=== PATIENT | female | born 1940 | race Caucasian/White ===

== ENCOUNTER → 2016-05-10 | Outpatient (CLI) | payer OTHER ==
[~2016-05-10] MED LIST: ASPIRIN CHILDRE81 MG PO; B12,B-12,B 12500 MC1 PO; BRILINTA90 M1 PO; CLARITIN10 MG PO; CLOPIDOGREL75 MG PO; COMPAZINE10 MG PO; CORDARONE200 MG PO; COUMADIN1 M1 PO; COUMADIN3 M1 PO; CRESTOR40 M1 PO; Carafate1 GM/10 ML PO; Coumadin3 MG PO; DIGOX0.125 MG PO; HYDROCOD-HOMAT1 EACH PO; LISINOPRIL10 M1 PO; LISINOPRIL20 MG PO; LOPRESSOR PO; LOPRESSOR25 MG PO; MACROBID100 M1 PO; MEDROL DOSEPAK4 MG PO; NATURE'S BLEND F1 MG PO; PRAVASTATIN SOD80 MG PO; PROTONIX TR40 M1 PO; SUPHEDRINE30 MG PO; TOPROL XL25 MG PO; WARFARIN2 MG PO; ZEBETA PO; ZEBETA10 MG PO
[2016-05-10 16:17] LABS: INTERNATIONAL NORM RATIO 1.8 (2.0-3.5); PROTHROMBIN TIME 20.1 SECONDS (9.0-12.4)
== END | disposition home or self-care (01) ==
LOC: LAB 14:44
PROVIDERS: Internal Medicine
DX: Z79.01 Long term (current) use of anticoagulants (principal)

== ENCOUNTER → 2016-07-06 | Outpatient (CLI) | payer OTHER ==
[2016-07-06 14:35] LABS: PROTHROMBIN TIME 46.4 SECONDS (9.0-12.4)
== END | disposition home or self-care (01) ==
LOC: LAB 13:42
PROVIDERS: Internal Medicine
DX: Z79.01 Long term (current) use of anticoagulants (principal)

== ENCOUNTER → 2016-07-20 | Outpatient (CLI) | payer OTHER ==
[2016-07-20 16:02] LABS: INTERNATIONAL NORM RATIO 1.8 (2.0-3.5); PROTHROMBIN TIME 19.4 SECONDS (9.0-12.4)
== END | disposition home or self-care (01) ==
LOC: LAB 14:55
PROVIDERS: Internal Medicine
DX: Z79.01 Long term (current) use of anticoagulants (principal)

== ENCOUNTER → 2016-09-22 | Outpatient (CLI) | payer OTHER ==
[2016-09-22 16:08] LABS: INTERNATIONAL NORM RATIO 2.1 (2.0-3.5); PROTHROMBIN TIME 23.8 SECONDS (9.0-12.4)
== END | disposition home or self-care (01) ==
LOC: LAB 12:37
PROVIDERS: Internal Medicine
DX: Z79.01 Long term (current) use of anticoagulants (principal)

== ENCOUNTER → 2016-12-01 | Outpatient (CLI) | payer OTHER ==
[2016-12-01 09:05] LABS: ALBUMIN 3.3 gm/dl (3.1-4.5); BILIRUBIN, DIRECT 0.1 mg/dL (0.0-0.2); CREATININE 1.12 mg/dL (0.55-1.02); PHOSPHOROUS 2.7 mg/dL (2.5-4.9); POTASSIUM 3.9 mmol/L (3.5-5.1); THYROXINE (T4) TOTAL 9.4 ug/dl (4.8-13.9); TOTAL PROTEIN 7.9 gm/dL (6.4-8.2)
[2016-12-01 09:15] LABS: DIGOXIN 0.92 ng/ml (0.8-2.0); THYROID STIM HORMONE (HS) 26.5 uIU/ml (0.358-4.75)
[2016-12-01 09:39] LABS: INTERNATIONAL NORM RATIO 2.3 (2.0-3.5)
== END | disposition home or self-care (01) ==
LOC: MAMMO 08:08 → LAB 08:08 → MAMMO 08:40
PROVIDERS: Internal Medicine
DX: Z12.31 Encounter for screening mammogram for malignant neoplasm of breast (principal); I48.0 Paroxysmal atrial fibrillation; I25.10 Atherosclerotic heart disease of native coronary artery without angina pectoris; I10 Essential (primary) hypertension; Z79.01 Long term (current) use of anticoagulants

== ENCOUNTER → 2016-12-15 | Outpatient (CLI) | payer OTHER ==
[2016-12-15 11:19] LABS: ALBUMIN 3.4 gm/dl (3.1-4.5); CREATININE 1.25 mg/dL (0.55-1.02); PHOSPHOROUS 3.5 mg/dL (2.5-4.9)
== END | disposition home or self-care (01) ==
LOC: LAB 10:28
PROVIDERS: Internal Medicine
DX: R73.9 Hyperglycemia, unspecified (principal); Z79.01 Long term (current) use of anticoagulants

== ENCOUNTER → 2017-03-02 | Outpatient (CLI) | payer OTHER ==
[2017-03-02 10:16] LABS: INTERNATIONAL NORM RATIO 2.1 (2.0-3.5)
== END | disposition home or self-care (01) ==
LOC: LAB 09:21
PROVIDERS: Internal Medicine
DX: I48.91 Unspecified atrial fibrillation (principal); E11.9 Type 2 diabetes mellitus without complications; Z79.01 Long term (current) use of anticoagulants

== ENCOUNTER → 2017-05-17 | Outpatient (CLI) | payer OTHER ==
[2017-05-17 10:05] LABS: INTERNATIONAL NORM RATIO 1.6 (2.0-3.5)
== END | disposition home or self-care (01) ==
LOC: LAB 08:56
PROVIDERS: Internal Medicine
DX: I48.0 Paroxysmal atrial fibrillation (principal); E11.9 Type 2 diabetes mellitus without complications; Z79.01 Long term (current) use of anticoagulants

== ENCOUNTER → 2017-07-10 | Outpatient (CLI) | payer OTHER ==
[2017-07-10 11:07] LABS: INTERNATIONAL NORM RATIO 3.1 (2.0-3.5)
== END | disposition home or self-care (01) ==
LOC: LAB 10:03
PROVIDERS: Internal Medicine
DX: E11.9 Type 2 diabetes mellitus without complications (principal); I48.1 Persistent atrial fibrillation; Z79.01 Long term (current) use of anticoagulants

== ENCOUNTER → 2017-08-15 | Outpatient (CLI) | payer OTHER ==
[2017-08-15 11:09] LABS: INTERNATIONAL NORM RATIO 2.8 (2.0-3.5)
== END | disposition home or self-care (01) ==
LOC: LAB 10:16
PROVIDERS: Internal Medicine
DX: I48.1 Persistent atrial fibrillation (principal); E11.9 Type 2 diabetes mellitus without complications; Z79.01 Long term (current) use of anticoagulants

== ENCOUNTER → 2017-09-19 | Outpatient (CLI) | payer OTHER ==
[2017-09-19 11:23] LABS: INTERNATIONAL NORM RATIO 1.4 (2.0-3.5)
[2017-09-19 11:24] LABS: ALBUMIN 3.4 gm/dl (3.1-4.5); ALKALINE PHOSPHATASE 77 U/L (45-117); BILIRUBIN, DIRECT < 0.1 mg/dL (0.0-0.2); BUN 16 mg/dl (7-24); CHLORIDE 105 mmol/L (98-107); CHOLESTEROL 142 mg/dL (<200); CREATININE 1.11 mg/dL (0.55-1.02); HDL CHOLESTEROL 37 mg/dl (40-60); LDL CHOLESTEROL 43 mg/dL (9-159); PHOSPHOROUS 3.9 mg/dL (2.5-4.9); POTASSIUM 4.3 mmol/L (3.5-5.1); SGOT/AST 10 IU/L (3-35); SGPT/ALT 13 U/L (12-78); SODIUM 141 mmol/L (136-145); TOTAL PROTEIN 7.1 gm/dL (6.4-8.2); TRIGLYCERIDES 312 mg/dl (<150); VLDL CHOLESTEROL 62 mg/dL (6-40)
== END | disposition home or self-care (01) ==
LOC: LAB 10:27
PROVIDERS: Internal Medicine
DX: I12.9 Hypertensive chronic kidney disease with stage 1 through stage 4 chronic kidney disease, or unspecified chronic kidney disease (principal); E11.22 Type 2 diabetes mellitus with diabetic chronic kidney disease; N18.3 Chronic kidney disease, stage 3 (moderate); I25.10 Atherosclerotic heart disease of native coronary artery without angina pectoris; Z79.01 Long term (current) use of anticoagulants

== ENCOUNTER → 2017-11-22 | Outpatient (CLI) | payer OTHER ==
[2017-11-22 11:56] LABS: INTERNATIONAL NORM RATIO 4.7 (2.0-3.5)
== END ==
LOC: LAB 10:34
PROVIDERS: Internal Medicine
DX: I48.1 Persistent atrial fibrillation (principal); E11.9 Type 2 diabetes mellitus without complications; Z79.01 Long term (current) use of anticoagulants

== ENCOUNTER → 2017-11-24 | Outpatient (CLI) | payer OTHER ==
[2017-11-24 10:59] LABS: INTERNATIONAL NORM RATIO 3.7 (2.0-3.5)
== END | disposition home or self-care (01) ==
LOC: LAB 09:31
PROVIDERS: Internal Medicine
DX: I48.0 Paroxysmal atrial fibrillation (principal); E11.9 Type 2 diabetes mellitus without complications; Z79.01 Long term (current) use of anticoagulants

== ENCOUNTER → 2017-12-11 | Outpatient (CLI) | payer OTHER ==
[2017-12-11 12:13] LABS: INTERNATIONAL NORM RATIO 2.6 (2.0-3.5)
== END | disposition home or self-care (01) ==
LOC: LAB 10:20
PROVIDERS: Internal Medicine
DX: I48.1 Persistent atrial fibrillation (principal); I10 Essential (primary) hypertension; E11.9 Type 2 diabetes mellitus without complications; Z79.01 Long term (current) use of anticoagulants

== ENCOUNTER → 2018-04-04 | Outpatient (CLI) | payer OTHER ==
[~2018-04-04] MED LIST changes: +ASPIRIN CHEWABL81 MG PO; +CELEXA10 MG PO; +COUMADIN2 M1 PO; +DIGOX125 MCG PO; +DOXYCYCLINE MO100 M1 PO; +GLUCOPHAGE500 M1 PO; +VITAMIN D32000 UNI1 PO
[2018-04-04 09:35] LABS: BASO % 0.3 % (0.0-1.0); EOS # 0.7 10*3/uL (0.0-0.4); EOS % 7.4 % (1.0-4.0); HEMOGLOBIN 12.9 g/dl (12.0-16.0); LYMPH # 3.1 10*3/uL (1.3-4.4); LYMPH % 33.7 % (27.0-41.0); MEAN CELL VOLUME 95.8 fl (81.0-99.0); MEAN CORPUSCULAR HGB 30.1 pg (27.0-31.0); MEAN CORPUSCULAR HGB CONC 31.5 g/dl (33.0-37.0); MEAN PLATELET VOLUME 10.7 fl (9.6-12.3); MONO # 0.6 10*3/uL (0.1-1.0); MONO % 6.3 % (3.0-9.0); NEUT # 4.7 10*3/uL (2.3-7.9); NEUT % 52.1 % (47.0-73.0); PLATELET COUNT AUTOMATED 201 10*3/uL (130-400); RED BLOOD COUNT 4.28 10*6/uL (4.10-5.10); RED CELL DISTRI WIDTH 14.1 % (0-14.5); WHITE BLOOD COUNT 9.1 10*3/uL (4.8-10.8)
[2018-04-04 09:59] LABS: INTERNATIONAL NORM RATIO 0.9 (2.0-3.5)
[2018-04-04 10:01] LABS: ALBUMIN 3.5 gm/dl (3.1-4.5); CREATININE 1.2 mg/dL (0.55-1.02); FREE T4 0.74 ng/dl (0.76-1.46); PHOSPHOROUS 3.8 mg/dL (2.5-4.9); POTASSIUM 4.2 mmol/L (3.5-5.1)
[2018-04-04 10:07] LABS: THYROID STIM HORMONE (HS) 9.63 uIU/ml (0.358-4.75)
== END | disposition home or self-care (01) ==
LOC: LAB 09:04
PROVIDERS: Internal Medicine
DX: I48.0 Paroxysmal atrial fibrillation (principal); E11.22 Type 2 diabetes mellitus with diabetic chronic kidney disease; N18.3 Chronic kidney disease, stage 3 (moderate); Z79.01 Long term (current) use of anticoagulants

== ENCOUNTER 2018-06-28 09:03 | Inpatient (IN) | payer OTHER ==
[2018-06-28] VITALS (7 sets, daily range): BP systolic 101–119; BP diastolic 54–74
[~2018-06-28] VITALS: Ht 147.3 cm; Wt 61.9 kg
--- NOTE | ~2018-06-28 | EKG ---
[place], [place] ELECTROCARDIOGRAM REPORT NAME: CHRISTY MARTÍNEZ UNIT #: [id number] ROOM: 511 DOCTOR: SARITA DRAFT REPORT BIRTHDATE: [birth year] [facility] Test Date: 2018-06-28 Test Time: 09:35:37 Pat Name: CHRISTY MARTÍNEZ Department: Room: 511 Gender: F Milieu Therapist: Kinga Balderas : 1940 Requested By: RUSS FERNANDO Order Number: [id number] Reading MD: Adi Gonzalez MD Measurements Intervals [place] Rate: 78 P: SC: 198 QRS: -42 QRSD: 140 T: 121 QT: 407 QTc: 464 Interpretive Statements Atrial-paced rhythm Left bundle branch block No previous ECG available for comparison Electronically Signed On 07-02-2018 14:12:20 PDT by Adi Gonzalez MD CM:EKGRPT:ELECTROCARDIOGRAM REPORT [id number] RUSS GONZALEZ DRAFT REPORT RUSS FERNANDO DO
[~2018-06-28 09:03] MED LIST changes: -ASPIRIN CHEWABL81 MG PO; -CELEXA10 MG PO; -COUMADIN2 M1 PO; -DIGOX125 MCG PO; -DOXYCYCLINE MO100 M1 PO; -GLUCOPHAGE500 M1 PO; -VITAMIN D32000 UNI1 PO
[2018-06-28 09:56] LABS: BASO % 0.2 % (0.0-1.0); EOS # 0.2 10*3/uL (0.0-0.4); EOS % 1.1 % (1.0-4.0); HEMATOCRIT 40.2 % (37.0-47.0); LYMPH # 1.9 10*3/uL (1.3-4.4); LYMPH % 13.4 % (27.0-41.0); MEAN CELL VOLUME 95.5 fl (81.0-99.0); MEAN CORPUSCULAR HGB 30.9 pg (27.0-31.0); MEAN CORPUSCULAR HGB CONC 32.3 g/dl (33.0-37.0); MEAN PLATELET VOLUME 10.6 fl (9.6-12.3); MONO # 1.3 10*3/uL (0.1-1.0); MONO % 9.2 % (3.0-9.0); NEUT # 10.9 10*3/uL (2.3-7.9); NEUT % 75.8 % (47.0-73.0); PLATELET COUNT AUTOMATED 244 10*3/uL (130-400); RED BLOOD COUNT 4.21 10*6/uL (4.10-5.10); RED CELL DISTRI WIDTH 13.6 % (0-14.5); WHITE BLOOD COUNT 14.4 10*3/uL (4.8-10.8)
[2018-06-28 10:14] LABS: ALBUMIN 3.2 gm/dl (3.1-4.5); ALKALINE PHOSPHATASE 74 U/L (45-117); BUN 19 mg/dl (7-24); CHLORIDE 100 mmol/L (98-107); CREATININE 1.82 mg/dL (0.55-1.02); LIPASE 145 U/L (73-393); POTASSIUM 3.6 mmol/L (3.5-5.1); SGOT/AST 12 IU/L (3-35); SGPT/ALT 10 U/L (12-78); SODIUM 135 mmol/L (136-145); TOTAL PROTEIN 8.2 gm/dL (6.4-8.2)
[2018-06-28 10:18] LABS: INTERNATIONAL NORM RATIO 1.1 (2.0-3.5); TROPONIN I < 0.015 ng/ml (<0.045)
[2018-06-28] MEDS ORDERED: COUMADIN1 M1 PO (12:29)
--- NOTE | 2018-06-28 13:12 | NUR ---
A 78, admitted to 5E, under the services of GLADYS Hartmann DO with a diagnosis of ARF, URI, WEAKNESS, DEHYDRATION. Chief complaint is COUGH, SINUS PRESSURE. Patient arrived via bed from ER. Monitor applied. Initial assessment completed. Vital signs taken and recorded. GLADYS HARTMANN DO notified of admission to the unit. Orders received. See assessment for past medical history, medications and allergies. Patient and/or family oriented to unit. Clothing/patient valuable form completed. NOBLE NAIK
[2018-06-28] MEDS ORDERED: ASPIRIN CHEWABL81 MG PO (15:07)
[2018-06-28] MEDS ORDERED: CLARITIN10 MG PO (15:08)
[2018-06-28] MEDS ORDERED: GLUCOPHAGE500 M1 PO (15:09)
[2018-06-28] MEDS ORDERED: CELEXA10 MG PO (15:09)
[2018-06-28] MEDS ORDERED: DIGOX125 MCG PO (15:10)
--- NOTE | 2018-06-28 15:11 | NUR ---
MED REC UP TO DATE WITH [facility] AT THIS TIME.
[2018-06-29] VITALS: BP 108/56
--- NOTE | 2018-06-29 00:42 | NUR ---
ASSUMED CARE FOR THIS PT. PT AWAKE IN BED DOING WORDSEARCH. PT C/O H/A 04/29. MEDICATED W/TYLENOL. WARM COMPRESS APPLIED TO LEFT EYE D/T DRAINAGE AND MATTING. CALL LIGHT IN REACH.
--- NOTE | 2018-06-29 02:00 | NUR ---
PT RESTING QUIETLY IN BED. PRN TYLENOL EFFECTIVE.
--- NOTE | 2018-06-29 05:35 | NUR ---
PT'S LEFT EYE RED W/MODERATE AMOUNT OF DRAINAGE. WOULD PT BENEFIT FROM MEDICATED EYE GTTS? I APPLIED WARM WASHCLOTHS THROUGH OUT THE NIGHT TO DECREASE ON THE AMOUNT OF CRUSTING. THANK YOU.
[2018-06-29 07:59] LABS: BASO % 0.3 % (0.0-1.0); EOS # 0.3 10*3/uL (0.0-0.4); EOS % 3.3 % (1.0-4.0); HEMATOCRIT 37.5 % (37.0-47.0); LYMPH # 2.5 10*3/uL (1.3-4.4); LYMPH % 24.1 % (27.0-41.0); MEAN CELL VOLUME 96.4 fl (81.0-99.0); MEAN CORPUSCULAR HGB 30.8 pg (27.0-31.0); MEAN PLATELET VOLUME 10.8 fl (9.6-12.3); MONO # 0.9 10*3/uL (0.1-1.0); MONO % 8.4 % (3.0-9.0); NEUT # 6.7 10*3/uL (2.3-7.9); NEUT % 63.6 % (47.0-73.0); PLATELET COUNT AUTOMATED 208 10*3/uL (130-400); RED BLOOD COUNT 3.89 10*6/uL (4.10-5.10); RED CELL DISTRI WIDTH 13.7 % (0-14.5); WHITE BLOOD COUNT 10.5 10*3/uL (4.8-10.8)
[2018-06-29 08:00] VITALS: BP 101/57
[2018-06-29 08:22] LABS: ALBUMIN 2.7 gm/dl (3.1-4.5); POTASSIUM 3.8 mmol/L (3.5-5.1)
[2018-06-29 08:30] LABS: INTERNATIONAL NORM RATIO 1.2 (2.0-3.5)
[2018-06-29 08:32] LABS: CREATININE 1.54 mg/dL (0.55-1.02); PHOSPHOROUS 3.1 mg/dL (2.5-4.9); TOTAL PROTEIN 7.3 gm/dL (6.4-8.2)
[2018-06-29 08:33] LABS: THYROID STIM HORMONE (HS) 4.76 uIU/ml (0.358-4.75)
--- NOTE | 2018-06-29 08:40 | NUR ---
PT RESTING IN BED. RESP-EASY AND REGULAR. DENIES ANY PAIN AT THIS TIME. CALL LIGHT IN REACH. SEE SHIFT ASSESSMENT. TOLERATED ROUTINE MEDICATIONS.
[2018-06-29 08:47] LABS: VITAMIN D, 25-HYDROXY 16.1 ng/mL (30-100)
[2018-06-29 12:00] VITALS: BP 98/53
--- NOTE | 2018-06-29 12:00 | NUR ---
BSG-115, SEE EMAR. NO C/O AT THIS TIME. CALL LIGHT IN [facility].
--- NOTE | 2018-06-29 13:07 | NUR ---
[employer] in to talk to patient. Patient states lives at HOME with SON AND DAUGHTER IN LAW. There are NO steps in the home. Physician: MARLENI [facility]acy: [facility] Home health services: NONE Patient's level of ADLs: INDEPENDENT Patient has working utilities: YES DME: NONE Follow-up physician's appointment after d/c: WILL BE MADE BY HOSPITALIST NURSE PARKER ON DISCHARGE Does patient want to access PORTAL?: NO Discharge plan PT STATES SHE LIVES AT HOME WITH HER SON AND DAUGHTER IN LAW. TALKED WITH PT ABOUT HOME HEALTH BUT STATES SHE DOES NOT NEED IT AT THIS TIME. PLANS TO RETURN HOME ON DISCHARGE. WILL CONTINUE TO FOLLOW. STATES SHE WILL HAVE A RIDE HOME.. ARIEL RUANO
--- NOTE | 2018-06-29 14:00 | NUR ---
RESTING IN BED. RESP-EASY AND REGULAR. NO C/O AT THIS TIME. CALL LIGHT IN REACH.
[2018-06-29 16:00] VITALS: BP 95/53
--- NOTE | 2018-06-29 18:00 | NUR ---
RESTING IN BED. NO C/O AT THIS TIME. CALL LIGHT IN REACH.
--- NOTE | 2018-06-29 19:15 | NUR ---
SITTING UP IN BED RESTING WITH VISITORS AT BED SIDE. DENIES ANY NEEDS OR COMPLAINTS AT THIS TIME. BED IS IN LOWEST POSITION WITH WHEELS LOCKED. SIDE RAILS UP X2. CALL LIGHT IS WITHIN REACH. ENCOURAGED TO USE CALL LIGHT FOR NEEDS. WILL CONTINUE TO MONITOR.
[2018-06-29 20:00] VITALS: BP 96/50
[2018-06-30] VITALS: BP 104/51
[2018-06-30 06:59] LABS: BASO % 0.2 % (0.0-1.0); EOS # 0.4 10*3/uL (0.0-0.4); EOS % 3.5 % (1.0-4.0); HEMATOCRIT 36.7 % (37.0-47.0); HEMOGLOBIN 11.8 g/dl (12.0-16.0); LYMPH # 3.2 10*3/uL (1.3-4.4); LYMPH % 25.8 % (27.0-41.0); MEAN CELL VOLUME 95.6 fl (81.0-99.0); MEAN CORPUSCULAR HGB 30.7 pg (27.0-31.0); MEAN CORPUSCULAR HGB CONC 32.2 g/dl (33.0-37.0); MEAN PLATELET VOLUME 10.5 fl (9.6-12.3); MONO % 7.9 % (3.0-9.0); NEUT # 7.8 10*3/uL (2.3-7.9); PLATELET COUNT AUTOMATED 244 10*3/uL (130-400); RED BLOOD COUNT 3.84 10*6/uL (4.10-5.10); RED CELL DISTRI WIDTH 13.6 % (0-14.5); WHITE BLOOD COUNT 12.5 10*3/uL (4.8-10.8)
[2018-06-30 07:18] LABS: ALBUMIN 2.8 gm/dl (3.1-4.5); CREATININE 1.67 mg/dL (0.55-1.02); POTASSIUM 3.9 mmol/L (3.5-5.1); TOTAL PROTEIN 7.4 gm/dL (6.4-8.2)
[2018-06-30 08:00] VITALS: BP 108/51
[2018-06-30 12:00] VITALS: BP 92/49
[2018-06-30 12:48] LABS: INTERNATIONAL NORM RATIO 1.1 (2.0-3.5)
[2018-06-30 16:00] VITALS: BP 95/50
--- NOTE | 2018-06-30 19:12 | NUR ---
RESTING IN BED AT THIS TIME WATCHING TV. DENIES ANY NEEDS OR COMPLAINTS. WILL CONTINUE TO MONITOR. CALL LIGHT IS WITHIN REACH.
[2018-06-30 20:00] VITALS: BP 100/54; BP 156/82
[2018-07-01] VITALS: BP 100/48
[2018-07-01 06:42] LABS: BASO % 0.2 % (0.0-1.0); EOS # 0.5 10*3/uL (0.0-0.4); EOS % 4.4 % (1.0-4.0); HEMATOCRIT 36.1 % (37.0-47.0); HEMOGLOBIN 11.4 g/dl (12.0-16.0); LYMPH # 3.2 10*3/uL (1.3-4.4); LYMPH % 26.4 % (27.0-41.0); MEAN CELL VOLUME 95.3 fl (81.0-99.0); MEAN CORPUSCULAR HGB 30.1 pg (27.0-31.0); MEAN CORPUSCULAR HGB CONC 31.6 g/dl (33.0-37.0); MEAN PLATELET VOLUME 10.4 fl (9.6-12.3); MONO # 0.9 10*3/uL (0.1-1.0); MONO % 7.2 % (3.0-9.0); NEUT # 7.4 10*3/uL (2.3-7.9); NEUT % 61.4 % (47.0-73.0); PLATELET COUNT AUTOMATED 237 10*3/uL (130-400); RED BLOOD COUNT 3.79 10*6/uL (4.10-5.10); RED CELL DISTRI WIDTH 13.8 % (0-14.5); WHITE BLOOD COUNT 12.1 10*3/uL (4.8-10.8)
[2018-07-01 06:51] LABS: CREATININE 1.63 mg/dL (0.55-1.02); POTASSIUM 3.7 mmol/L (3.5-5.1)
[2018-07-01 08:00] VITALS: BP 110/58
[2018-07-01] MEDS ORDERED: COUMADIN2 M1 PO (10:43)
[2018-07-01] MEDS ORDERED: VITAMIN D32000 UNI1 PO (10:43)
[2018-07-01] MEDS ORDERED: DOXYCYCLINE MO100 M1 PO (10:43)
[2018-07-01 12:00] VITALS: BP 91/59
--- NOTE | 2018-07-01 14:10 | NUR ---
Discharge instructions reviewed with patient/family. Patient receptive and verbalizes understanding. Follow-up care arranged. Written instructions given to patient/family. IV site removed. Pt transported to [facility] via wheelchair, accompanied by staff. ELIAS WONG
== END 2018-07-01 14:10 | disposition home or self-care (01) | DRG 682 ==
LOC: ED 09:03 → EDHOLD 12:18 → 5E 12:18
PROVIDERS: Emergency Medicine; Internal Medicine; Student in an Organized Health Care Education/Training Program; ADMIT Internal Medicine
DX: N17.0 Acute kidney failure with tubular necrosis (principal); E43 Unspecified severe protein-calorie malnutrition; E87.1 Hypo-osmolality and hyponatremia; J01.90 Acute sinusitis, unspecified; E86.0 Dehydration; R53.1 Weakness; D72.825 Bandemia; E83.41 Hypermagnesemia; R42 Dizziness and giddiness; I48.91 Unspecified atrial fibrillation; E11.65 Type 2 diabetes mellitus with hyperglycemia; E11.22 Type 2 diabetes mellitus with diabetic chronic kidney disease; I12.9 Hypertensive chronic kidney disease with stage 1 through stage 4 chronic kidney disease, or unspecified chronic kidney disease; N18.3 Chronic kidney disease, stage 3 (moderate); I44.7 Left bundle-branch block, unspecified; E78.00 Pure hypercholesterolemia, unspecified; F03.90 Unspecified dementia, unspecified severity, without behavioral disturbance, psychotic disturbance, mood disturbance, and anxiety; E66.9 Obesity, unspecified; Z95.0 Presence of cardiac pacemaker; Z82.49 Family history of ischemic heart disease and other diseases of the circulatory system; Z88.2 Allergy status to sulfonamides; Z79.82 Long term (current) use of aspirin; Z79.899 Other long term (current) drug therapy; Z79.01 Long term (current) use of anticoagulants; Z68.28 Body mass index [BMI] 28.0-28.9, adult

== ENCOUNTER → 2018-11-12 | Outpatient (CLI) | payer OTHER ==
[~2018-11-12] MED LIST changes: +ASPIRIN CHEWABL81 MG PO; +CELEXA10 MG PO; +COUMADIN2 M1 PO; +DIGOX125 MCG PO; +DOXYCYCLINE MO100 M1 PO; +GLUCOPHAGE500 M1 PO; +VITAMIN D32000 UNI1 PO
[2018-11-12 10:23] LABS: BASO # 0.1 10*3/uL (0.0-0.1); BASO % 0.5 % (0.0-1.0); EOS # 0.7 10*3/uL (0.0-0.4); EOS % 6.7 % (1.0-4.0); HEMATOCRIT 36.9 % (37.0-47.0); HEMOGLOBIN 11.7 g/dl (12.0-16.0); LYMPH % 30.1 % (27.0-41.0); MEAN CELL VOLUME 97.1 fl (81.0-99.0); MEAN CORPUSCULAR HGB 30.8 pg (27.0-31.0); MEAN CORPUSCULAR HGB CONC 31.7 g/dl (33.0-37.0); MEAN PLATELET VOLUME 10.6 fl (9.6-12.3); MONO # 0.7 10*3/uL (0.1-1.0); NEUT # 5.6 10*3/uL (2.3-7.9); NEUT % 55.5 % (47.0-73.0); PLATELET COUNT AUTOMATED 190 10*3/uL (130-400)
[2018-11-12 10:37] LABS: INTERNATIONAL NORM RATIO 1.2 (2.0-3.5)
[2018-11-12 11:00] LABS: ALBUMIN 3.5 gm/dl (3.1-4.5); BILIRUBIN, DIRECT 0.1 mg/dL (0.0-0.2); CREATININE 1.59 mg/dL (0.55-1.02); PHOSPHOROUS 3.6 mg/dL (2.5-4.9); POTASSIUM 3.9 mmol/L (3.5-5.1)
[2018-11-12 11:03] LABS: TOTAL PROTEIN 7.3 gm/dL (6.4-8.2)
== END | disposition home or self-care (01) ==
LOC: LAB 09:54
PROVIDERS: Internal Medicine
DX: I48.2 Chronic atrial fibrillation (principal); E11.9 Type 2 diabetes mellitus without complications; I10 Essential (primary) hypertension

== ENCOUNTER → 2018-12-14 | Outpatient (CLI) | payer OTHER ==
[2018-12-14 10:38] LABS: INTERNATIONAL NORM RATIO 1.5 (2.0-3.5)
== END | disposition home or self-care (01) ==
LOC: LAB 09:51
PROVIDERS: Internal Medicine
DX: I48.20 Chronic atrial fibrillation, unspecified (principal); Z79.01 Long term (current) use of anticoagulants

== ENCOUNTER → 2018-12-31 | Outpatient (CLI) | payer OTHER | END | disposition home or self-care (01) | LOC: LAB 10:39 | PROVIDERS: Internal Medicine | DX: I48.20 Chronic atrial fibrillation, unspecified (principal); Z79.01 Long term (current) use of anticoagulants ==

== ENCOUNTER 2019-01-24 22:38 | Emergency (ER) | payer OTHER ==
[~2019-01-24] VITALS: Ht 152.4 cm; Wt 68.0 kg
--- NOTE | ~2019-01-24 | EKG ---
[place], [place] ELECTROCARDIOGRAM REPORT NAME: CHRISTY MARTÍNEZ UNIT #: [id number] ROOM: DOCTOR: EPIPHANY DRAFT REPORT BIRTHDATE: [address] [facility] Test Date: 2019-01-24 Test Time: 23:31:09 Pat Name: CHRISTY MARTÍNEZ Department: Room: Gender: F Ice Skater: Domi Murphy : 1940 Requested By: EVELINA LAGUNAS Order Number: [id number] Reading MD: Darius Kendall MD Measurements Intervals [place] Rate: 64 P: MD: 211 QRS: -34 QRSD: 145 T: 141 QT: 422 QTc: 436 Interpretive Statements Atrial-paced rhythm Left bundle branch block Compared to ECG 06/28/2018 09:35:37 No significant changes Electronically Signed On 01-25-2019 4:32:11 PST by Darius Kendall MD CM:EKGRPT:ELECTROCARDIOGRAM REPORT [id number] EVELINA GONZALEZ DRAFT REPORT EVELINA LAGUNAS DO
[2019-01-24 23:40] LABS: BASO # 0.1 10*3/uL (0.0-0.1); BASO % 0.4 % (0.0-1.0); EOS # 0.5 10*3/uL (0.0-0.4); EOS % 3.2 % (1.0-4.0); HEMATOCRIT 34.7 % (37.0-47.0); LYMPH # 2.1 10*3/uL (1.3-4.4); LYMPH % 13.9 % (27.0-41.0); MEAN CELL VOLUME 99.4 fl (81.0-99.0); MEAN CORPUSCULAR HGB 31.5 pg (27.0-31.0); MEAN CORPUSCULAR HGB CONC 31.7 g/dl (33.0-37.0); MEAN PLATELET VOLUME 10.1 fl (9.6-12.3); MONO # 0.9 10*3/uL (0.1-1.0); MONO % 6.3 % (3.0-9.0); NEUT # 11.3 10*3/uL (2.3-7.9); NEUT % 75.7 % (47.0-73.0); PLATELET COUNT AUTOMATED 242 10*3/uL (130-400); RED BLOOD COUNT 3.49 10*6/uL (4.10-5.10)
[2019-01-24 23:58] LABS: ALBUMIN 3.2 gm/dl (3.1-4.5); ALKALINE PHOSPHATASE 65 U/L (45-117); BUN 25 mg/dl (7-24); CHLORIDE 105 mmol/L (98-107); CREATININE 1.87 mg/dL (0.55-1.02); POTASSIUM 4.4 mmol/L (3.5-5.1); SGOT/AST 18 IU/L (3-35); SGPT/ALT 14 U/L (12-78); SODIUM 137 mmol/L (136-145); TOTAL PROTEIN 7.6 gm/dL (6.4-8.2)
[2019-01-25 00:02] LABS: TROPONIN I < 0.015 ng/ml (<0.045)
[2019-01-25 01:22] LABS: BILIRUBIN NEGATIVE (NEGATIVE); BLOOD TRACE-INTACT (NEGATIVE); CLARITY CLOUDY (CLEAR); COLOR YELLOW (YELLOW); GLUCOSE NEGATIVE (NEGATIVE); KETONE NEGATIVE (NEGATIVE); LEUKO ESTERASE TRACE (NEGATIVE); NITRITE NEGATIVE (NEGATIVE); UROBILINOGEN 0.2 E.U./dl (0.2-1.0)
[2019-01-25 01:42] LABS: BACTERIA 2+; EPITHELIAL CELLS TNTC
== END 2019-01-25 02:48 | disposition home or self-care (01) ==
LOC: ED 22:38
PROVIDERS: Emergency Medicine
DX: R42 Dizziness and giddiness (principal); I48.91 Unspecified atrial fibrillation; I25.10 Atherosclerotic heart disease of native coronary artery without angina pectoris; E78.00 Pure hypercholesterolemia, unspecified; I12.9 Hypertensive chronic kidney disease with stage 1 through stage 4 chronic kidney disease, or unspecified chronic kidney disease; E11.22 Type 2 diabetes mellitus with diabetic chronic kidney disease; N18.3 Chronic kidney disease, stage 3 (moderate); E66.9 Obesity, unspecified; Z95.0 Presence of cardiac pacemaker; Z98.61 Coronary angioplasty status; Z88.2 Allergy status to sulfonamides; Z79.01 Long term (current) use of anticoagulants; Z79.2 Long term (current) use of antibiotics; Z79.899 Other long term (current) drug therapy; Z79.82 Long term (current) use of aspirin

== ENCOUNTER → 2019-10-09 | Outpatient (CLI) | payer OTHER ==
[2019-10-09 12:38] LABS: BASO % 0.3 % (0.0-1.0); EOS # 0.9 10*3/uL (0.0-0.4); EOS % 6.5 % (1.0-4.0); HEMATOCRIT 35.5 % (37.0-47.0); LYMPH % 21.4 % (27.0-41.0); MEAN CORPUSCULAR HGB 29.8 pg (27.0-31.0); MEAN CORPUSCULAR HGB CONC 30.7 g/dl (33.0-37.0); MONO # 0.8 10*3/uL (0.1-1.0); MONO % 5.8 % (3.0-9.0); NEUT # 9.3 10*3/uL (2.3-7.9); NEUT % 65.5 % (47.0-73.0); PLATELET COUNT AUTOMATED 238 10*3/uL (130-400); RED BLOOD COUNT 3.66 10*6/uL (4.10-5.10); WHITE BLOOD COUNT 14.2 10*3/uL (4.8-10.8)
[2019-10-09 13:06] LABS: ALBUMIN 3.2 gm/dl (3.1-4.5); ALKALINE PHOSPHATASE 69 U/L (45-117); BILIRUBIN, DIRECT < 0.1 mg/dL (0.0-0.2); BUN 21 mg/dl (7-24); CHLORIDE 112 mmol/L (98-107); CHOLESTEROL 123 mg/dL (<200); CREATININE 1.65 mg/dL (0.55-1.02); POTASSIUM 4.2 mmol/L (3.5-5.1); SGOT/AST 9 IU/L (3-35); SGPT/ALT 11 U/L (12-78); SODIUM 142 mmol/L (136-145); TOTAL PROTEIN 7.3 gm/dL (6.4-8.2); TRIGLYCERIDES 248 mg/dl (<150); VLDL CHOLESTEROL 50 mg/dL (6-40)
[2019-10-09 13:07] LABS: HDL CHOLESTEROL 40 mg/dl (40-60); LDL CHOLESTEROL 33 mg/dL (9-159)
== END | disposition home or self-care (01) ==
LOC: LAB 11:54
PROVIDERS: Internal Medicine
DX: E11.22 Type 2 diabetes mellitus with diabetic chronic kidney disease (principal); N18.3 Chronic kidney disease, stage 3 (moderate); I48.20 Chronic atrial fibrillation, unspecified; E78.2 Mixed hyperlipidemia; R53.83 Other fatigue

== ENCOUNTER → 2020-08-12 | Outpatient (CLI) | payer OTHER, MEDICARE ==
[2020-08-12 12:10] LABS: BASO % 0.3 % (0.0-1.0); EOS # 0.8 10*3/uL (0.0-0.4); EOS % 6.4 % (1.0-4.0); HEMATOCRIT 39.4 % (37.0-47.0); LYMPH # 2.7 10*3/uL (1.3-4.4); LYMPH % 22.4 % (27.0-41.0); MEAN CELL VOLUME 97.8 fl (81.0-99.0); MEAN CORPUSCULAR HGB 30.5 pg (27.0-31.0); MEAN CORPUSCULAR HGB CONC 31.2 g/dl (33.0-37.0); MEAN PLATELET VOLUME 10.7 fl (9.6-12.3); MONO # 0.9 10*3/uL (0.1-1.0); MONO % 7.4 % (3.0-9.0); NEUT # 7.5 10*3/uL (2.3-7.9); NEUT % 62.8 % (47.0-73.0); PLATELET COUNT AUTOMATED 272 10*3/uL (130-400); RED BLOOD COUNT 4.03 10*6/uL (4.10-5.10); RED CELL DISTRI WIDTH 13.3 % (0-14.5)
[2020-08-12 12:32] LABS: ALBUMIN 3.4 gm/dl (3.1-4.5); BUN 18 mg/dl (7-24); CHLORIDE 106 mmol/L (98-107); POTASSIUM 4.3 mmol/L (3.5-5.1); SODIUM 138 mmol/L (136-145)
[2020-08-12 12:48] LABS: ALKALINE PHOSPHATASE 93 U/L (45-117); BILIRUBIN, DIRECT < 0.1 mg/dL (0.0-0.2); DIGOXIN 1.14 ng/ml (0.8-2.0); SGOT/AST 11 IU/L (3-35); SGPT/ALT 16 U/L (12-78); TOTAL PROTEIN 7.3 gm/dL (6.4-8.2)
== END | disposition home or self-care (01) ==
LOC: LAB 11:49
PROVIDERS: ATTEND Internal Medicine
DX: I12.9 Hypertensive chronic kidney disease with stage 1 through stage 4 chronic kidney disease, or unspecified chronic kidney disease (principal); E11.22 Type 2 diabetes mellitus with diabetic chronic kidney disease; N18.4 Chronic kidney disease, stage 4 (severe)